=== PATIENT | female | born 1960 | race Two or more races ===

== ENCOUNTER 2016-09-12 19:05 | Emergency (ER) | payer SELFPAY ==
[~2016-09-12] VITALS: Ht 165.1 cm; Wt 49.9 kg
[2016-09-12] MEDS ORDERED: IBUPROFEN 600 MG TABLET PO ONE ×2 (19:30→19:43)
[2016-09-12] MEDS ORDERED: IV NS 0.9% 1,000 ML BAG IV ONE (19:30)
[2016-09-12] MEDS ORDERED: HYDROCODONE/APAP 5/325MG 1 EACH TABLET PO ONE (19:30)
[2016-09-12] MEDS ORDERED: HYDROCODONE/APAP 5/325MG 1 EACH TABLET ONE (19:42)
[2016-09-12] MEDS ORDERED: IV NS 0.9% 1,000 ML ONE (19:43)
[2016-09-12] MEDS ORDERED: IV SET PRIMARY 1 EA INFUS.SET MC ONE (19:43)
[2016-09-12 19:52] LABS: BASOPHILS % (AUTO) 0.8 % (0.0-2.0); DIFF TOTAL % 100 %; EOSINOPHILS % (AUTO) 0.1 % (0.0-6.0); HEMATOCRIT 39 % (33-45); HEMOGLOBIN 13.2 g/dL (11.5-14.8); LYMPHOCYTES # (AUTO) 1.4 /CMM (0.8-4.8); LYMPHOCYTES % (AUTO) 34.1 % (20.0-44.0); MEAN CORPUSCULAR HEMOGLOBIN 29 PG (26.0-33.0); MEAN CORPUSCULAR HGB CONC 34 g/dl (31.0-36.0); MEAN CORPUSCULAR VOLUME 85 fL (82-100); MONOCYTES # (AUTO) 0.6 /CMM (0.1-1.30); MONOCYTES % (AUTO) 14.2 % (2.0-12.0); NEUTROPHILS % (AUTO) 50.8 % (43.0-81.0); PLATELET COUNT (AUTO) 349 /CMM (150-450); RED BLOOD CELL COUNT(AUTO) 4.57 MIL/uL (4.0-5.2)
[2016-09-12 20:04] LABS: ANION GAP 16 (5-14); CALCIUM, SERUM 9.7 mg/dL (8.5-10.1); CARBON DIOXIDE 27 mmol/L (21-32); CHLORIDE 98 mmol/L (98-107); CREATININE 0.6 mg/dL (0.6-1.3); GFR 104 mL/min (>60); GLUCOSE 85 mg/dL (74-106); POTASSIUM 3.5 mmol/L (3.5-5.1); SODIUM SERUM 138 mmol/L (136-145); UREA NITROGEN, BLOOD 22 mg/dL (7-18)
[2016-09-12 20:11] LABS: TROPONIN I < 0.017 ng/mL (0.00-0.056)
[2016-09-12 21:29] VITALS: BP 102/76
== END 2016-09-12 21:29 | disposition home or self-care (01) ==
LOC: ER 19:27
DX: B34.9 Viral infection, unspecified (principal); I10 Essential (primary) hypertension; N20.0 Calculus of kidney
CPT/HCPCS: 36415; 71010-TC; 80048-TC; 83605-TC; 83880; 84484-TC; 85025-TC; 87400; A4606; J7030; Z7610